=== PATIENT | male | born 1940 | race Caucasian/White ===

== ENCOUNTER 2018-07-16 06:21 | Day surgery (SDC) | payer MEDICARE, OTHER ==
[~2018-07-16] VITALS: Ht 182.9 cm; Wt 108.0 kg
[~2018-07-16 06:21] MED LIST: ASPI81EC PO; Androgel2.5 GM TOP; Aspirin EC81 MG; CHLOROPHYLL 201 EACH; Coq-10100 MG PO; ERGO400 PO; EXFORGE PO; Exforge 5-3201 EACH PO; FISH OIL 1,0001 EAC1 PO; HYOS.375ER PO; HYOSCYAMINE0.375 MG PO; LIRA0.6P SC; METF500C PO; Metamucil0.52 GM PO; NULLO PO; OMEP20ER PO; PROBIOTIC1 EAC1 PO; PROBIOTICS PO; PSYL5.85P PO; SERT50 PO; TAMS.4ER PO; TOCO1000 PO; VITAMIN E PO; Vitamin D-3 PO; Vitamin D400 UNI1 PO; [UNRECOGNIZED DRUG - OTHER] PO
== END 2018-07-16 08:46 | disposition home or self-care (01) ==
LOC: ORSCMMR 06:21 → ORD 07:30 → ORSCMMR 08:46
PROVIDERS: Surgery
PROC: 0JBG0ZZ Excision of Right Lower Arm Subcutaneous Tissue and Fascia, Open Approach (ICD-10-PCS; principal; 2018-07-16 07:30)
DX: D18.01 Hemangioma of skin and subcutaneous tissue (principal); E11.9 Type 2 diabetes mellitus without complications; G47.33 Obstructive sleep apnea (adult) (pediatric); I10 Essential (primary) hypertension; E78.5 Hyperlipidemia, unspecified; Z79.899 Other long term (current) drug therapy
CPT/HCPCS: 82947; 88305; J0690; J2001; J2250; J3010; J7120

== ENCOUNTER → 2020-06-28 | Outpatient (CLI) | payer MEDICARE, OTHER ==
[~2020-06-28] MED LIST changes: +AMLODIPINE-VAL1 EAC2 PO; +Co Q-10300 MG PO; +ERGO400; +Fish Oil 10001000 MG PO; +Glucophage1000 MG PO; +HYOSCYAMINE0.375 M1 PO; +Metamucil Plus1 EACH PO; +OMEPRAZOLE MAGN20 MG PO; +PROBIOTIC1 EAC1; +SAXENDA3 MG/0.5 M SC; +SERT100 PO; +TESTOSTERO30 MG/1.5 TD; +Vitamin E100 UNIT
[2020-06-28 11:00] LABS: Source, Urine Clean Catch
[2020-06-28 12:37] LABS: Appearance, Urine Clear (Clear); Bilirubin, Urine Neg (Neg); Blood, Urine Neg (Neg); Color, Urine Yellow (P-Yellow); Glucose Qualitative, Urine Neg (Neg); Ketones, Urine Neg (Neg); Leukocyte Esterase, Urine Neg (Neg); Nitrite, Urine Neg (Neg); Protein, Urine Neg (Neg); Urobilinogen, Urine 1+ (Normal)
== END | disposition home or self-care (01) ==
LOC: LAB SHORT 10:58 → OLS 10:58
PROVIDERS: Internal Medicine
DX: N39.44 Nocturnal enuresis (principal)
CPT/HCPCS: 81003

== ENCOUNTER 2021-08-12 19:36 | Inpatient (IN) | payer MEDICARE, OTHER ==
[~2021-08-12] VITALS: Ht 172.7 cm; Wt 105.2 kg
[2021-08-12 21:13] LABS: BASOPHILS ABSOLUTE AUTO 0.09 K/mm3 (0.00-0.23); BASOPHILS PERCENT AUTO 0 % (0-2); EOSINOPHILS PERCENT AUTO 0 % (0-6); Hematocrit 45.9 % (37.0-53.0); Hemoglobin 15.1 g/dL (13.5-17.5); IMMATURE GRAN ABSOLUTE AUTO 0.47 K/mm3 (0.00-0.10); IMMATURE GRAN PERCENT AUTO 1 % (0-1); LYMPHOCYTES ABSOLUTE AUTO 0.72 K/mm3 (0.84-5.20); LYMPHOCYTES PERCENT AUTO 2 % (21-46); MONOCYTES ABSOLUTE AUTO 3.17 K/mm3 (0.16-1.47); MONOCYTES PERCENT AUTO 10 % (4-13); Mean Corpuscular HGB 32.3 pg (26.0-34.0); Mean Corpuscular HGB Conc 32.9 g/dL (31.5-36.5); Mean Corpuscular Volume 98 fL (80-100); Mean Platelet Volume 10.8 fL (9.1-12.4); NEUTROPHILS ABSOLUTE AUTO 28.35 K/mm3 (1.96-9.15); NEUTROPHILS PERCENT AUTO 86 % (41-73); Platelet Count 210 K/mm3 (150-400); RDW Coefficient Variation 13.4 % (11.7-14.2); RDW Standard Deviation 48.3 fL (35.1-46.3); Red Blood Cell Count 4.67 M/mm3 (4.30-5.90)
[2021-08-12 21:41] LABS: Alanine Aminotransfer (ALT/SGP 23 U/L (12-78); Albumin, Blood 3.4 g/dL (3.4-5.0); Albumin/Globulin Ratio 0.8 (0.8-1.8); Alk Phos 99 U/L (50-136); Anion Gap 8 mmol/L (6-16); Aspartate Aminotrans (AST/SGOT 25 U/L (12-37); Blood Urea Nitrogen 26 mg/dL (8-24); Bun/Creatinine Ratio 28.3 (12.0-20.0); CO2, Blood 24 mmol/L (21-32); Calcium, Blood 9.7 mg/dL (8.5-10.1); Chloride, Blood 100 mmol/L (98-108); Creatinine, Blood 0.92 mg/dL (0.60-1.20); Globulin, Blood 4.1 g/dL (2.2-4.0); Glomerular Filtration Rate >60 (60-); Glucose, Blood 226 mg/dL (70-99); Potassium, Blood 4.5 mmol/L (3.5-5.5); Sodium, Blood 132 mmol/L (136-145); Total Protein, Blood 7.5 g/dL (6.4-8.2)
[2021-08-12 21:56] LABS: Source, Urine Clean Catch
[2021-08-12 22:13] LABS: Blood, Urine 3+ (Neg); Glucose Qualitative, Urine 2+ (Neg); Ketones, Urine 2+ (Neg); Leukocyte Esterase, Urine 3+ (Neg); Nitrite, Urine Neg (Neg); Protein, Urine 2+ (Neg); Specific Gravity, Urine 1.025 (1.003-1.022); Urobilinogen, Urine 2+ (Normal)
[2021-08-12 22:22] LABS: Appearance, Urine Cloudy (Clear); Bilirubin, Urine 1+ (Neg); Color, Urine Yellow (P-Yellow)
[2021-08-12 22:24] LABS: Bacteria Many /hpf; Mucus Light (0-Heavy); Squamous Epithelial Cells Few /hpf (Few); White Blood Cells, Urine TNTC /hpf (0-5)
[2021-08-12] MEDS ORDERED: VICTOZA 3-0.6 MG/0.2 SC (23:39)
[2021-08-12] MEDS ORDERED: DONEPEZIL HCL10 MG PO (23:40)
[2021-08-13 00:47] LABS: Influenza A, PCR NEGATIVE (NEGATIVE); Influenza B, PCR NEGATIVE (NEGATIVE); Resp Syncytial Virus, PCR NEGATIVE (NEGATIVE); SARS-Cov-2 (COVID-19) PCR, MMC NEGATIVE (NEGATIVE)
[2021-08-13 05:33] LABS: BASOPHILS ABSOLUTE AUTO 0.05 K/mm3 (0.00-0.23); BASOPHILS PERCENT AUTO 0 % (0-2); EOSINOPHILS PERCENT AUTO 0 % (0-6); Hemoglobin 12.9 g/dL (13.5-17.5); IMMATURE GRAN ABSOLUTE AUTO 0.31 K/mm3 (0.00-0.10); IMMATURE GRAN PERCENT AUTO 1 % (0-1); LYMPHOCYTES ABSOLUTE AUTO 1.08 K/mm3 (0.84-5.20); LYMPHOCYTES PERCENT AUTO 4 % (21-46); MONOCYTES ABSOLUTE AUTO 1.96 K/mm3 (0.16-1.47); MONOCYTES PERCENT AUTO 8 % (4-13); Mean Corpuscular HGB 32.5 pg (26.0-34.0); Mean Corpuscular HGB Conc 33.1 g/dL (31.5-36.5); Mean Corpuscular Volume 98 fL (80-100); NEUTROPHILS ABSOLUTE AUTO 21.77 K/mm3 (1.96-9.15); NEUTROPHILS PERCENT AUTO 87 % (41-73); RDW Coefficient Variation 13.2 % (11.7-14.2); Red Blood Cell Count 3.97 M/mm3 (4.30-5.90); White Blood Cell Count 25.17 K/mm3 (4.00-11.30)
[2021-08-13 05:44] LABS: Mean Platelet Volume 11.1 fL (9.1-12.4); Platelet Count 143 K/mm3 (150-400)
[2021-08-13 06:19] LABS: Alanine Aminotransfer (ALT/SGP 16 U/L (12-78); Albumin, Blood 2.5 g/dL (3.4-5.0); Albumin/Globulin Ratio 0.8 (0.8-1.8); Alk Phos 81 U/L (50-136); Anion Gap 4 mmol/L (6-16); Aspartate Aminotrans (AST/SGOT 22 U/L (12-37); Bilirubin, Total 0.7 mg/dL (0.1-1.0); Blood Urea Nitrogen 21 mg/dL (8-24); Bun/Creatinine Ratio 28.9 (12.0-20.0); CO2, Blood 26 mmol/L (21-32); Calcium, Blood 8.5 mg/dL (8.5-10.1); Chloride, Blood 105 mmol/L (98-108); Creatinine, Blood 0.73 mg/dL (0.60-1.20); Globulin, Blood 3.3 g/dL (2.2-4.0); Glomerular Filtration Rate >60 (60-); Glucose, Blood 170 mg/dL (70-99); Potassium, Blood 4.2 mmol/L (3.5-5.5); Sodium, Blood 135 mmol/L (136-145); Total Protein, Blood 5.8 g/dL (6.4-8.2)
[2021-08-13] MEDS ORDERED: Diflucan150 MG PO (10:09)
[2021-08-13] MEDS ORDERED: METF500 PO (17:57)
[2021-08-13] MEDS ORDERED: Vitamin D1000 UNI1 PO (17:59)
--- NOTE | 2021-08-13 19:04 | NUR ---
PT ADMITTED TO MEDICAL FLOOR FROM ED,PT HAVE OVER 250CC IN AFER VOID AND BLADER SCAN,SUAREZ INSERTED PER ORDER.PT IS DEMENTED.DAUGHTER AT BEDSIDE,PT USE CIPAP AT NIGHT PER DAUGHTER,PT IN BED CALL LIGHT IN REACH,GIVE REPORT TO ON COMING RN TO RESUME CARE AT THIS TIME.
[2021-08-13 19:09] LABS: Source, Urine Catheter
[2021-08-13 19:14] LABS: Appearance, Urine Hazy (Clear); Bilirubin, Urine Neg (Neg); Blood, Urine 2+ (Neg); Color, Urine Yellow (P-Yellow); Glucose Qualitative, Urine Neg (Neg); Ketones, Urine 1+ (Neg); Leukocyte Esterase, Urine 2+ (Neg); Nitrite, Urine Neg (Neg); Protein, Urine 1+ (Neg); Urobilinogen, Urine 1+ (Normal)
[2021-08-13 19:32] LABS: White Blood Cells, Urine 25-50 /hpf (0-5)
[2021-08-13 19:33] LABS: Bacteria Few /hpf; Squamous Epithelial Cells Few /hpf (Few)
--- NOTE | 2021-08-13 23:38 | NUR ---
AROUNND 1900 PT WAS DEB WITH HR OF 32 BPM FOR A FEW SECONDS AND HR CAME BACK UP TO THE 70'S. PT CHECKED ON, APPEARS TO BE NO CHANGES. ENTERTAINMENT MUSICIAN. SALVADOR Clemons MADE AWARE. PT IS ALERT AND TALKING TO DAUGHTER IN ROOM AT THIS TIME. WILL CONTINUE TO MONTIOR. 2300 PT SR WITH BBB IN THE 70'S PER OPERATIONS SUPPORT REPRESENTATIVE. CALL LIGHT WITHIN REACH, BED ALARM ON, WILL CONTINUE TO MONITOR.
--- NOTE | 2021-08-14 04:36 | NUR ---
MANAGER MATERIAL SUMMARY A/O X4 WITH FORGETFULNESS. SLEPT WELL TONIGHT, DENIES PAIN. ROOM AIR DURING THE DAY, CPAP AT NIGHT. SATTING IN THE 90'S. SUAREZ PATNENT AND DRAINING RED URINE. PER HALVER MACHINE OPERATOR, PT RUNNING SINUS IN THE 70'S WITH BBB. VITALS STABLE. CALL LIGHT WITHIN REACH, BED ALARM ON, WILL CONTINUE TO MONITOR.
[2021-08-14 05:06] LABS: BASOPHILS ABSOLUTE AUTO 0.02 K/mm3 (0.00-0.23); BASOPHILS PERCENT AUTO 0 % (0-2); EOSINOPHILS ABSOLUTE AUTO 0.03 K/mm3 (0.00-0.68); EOSINOPHILS PERCENT AUTO 0 % (0-6); Hematocrit 37.1 % (37.0-53.0); Hemoglobin 12.4 g/dL (13.5-17.5); IMMATURE GRAN ABSOLUTE AUTO 0.05 K/mm3 (0.00-0.10); IMMATURE GRAN PERCENT AUTO 0 % (0-1); LYMPHOCYTES ABSOLUTE AUTO 0.61 K/mm3 (0.84-5.20); LYMPHOCYTES PERCENT AUTO 4 % (21-46); MONOCYTES ABSOLUTE AUTO 1.03 K/mm3 (0.16-1.47); MONOCYTES PERCENT AUTO 7 % (4-13); Mean Corpuscular HGB 32.2 pg (26.0-34.0); Mean Corpuscular HGB Conc 33.4 g/dL (31.5-36.5); Mean Corpuscular Volume 96 fL (80-100); Mean Platelet Volume 11.4 fL (9.1-12.4); NEUTROPHILS ABSOLUTE AUTO 12.51 K/mm3 (1.96-9.15); NEUTROPHILS PERCENT AUTO 88 % (41-73); Platelet Count 165 K/mm3 (150-400); RDW Coefficient Variation 13.2 % (11.7-14.2); RDW Standard Deviation 46.5 fL (35.1-46.3); Red Blood Cell Count 3.85 M/mm3 (4.30-5.90); White Blood Cell Count 14.25 K/mm3 (4.00-11.30)
[2021-08-14 05:48] LABS: Alanine Aminotransfer (ALT/SGP 16 U/L (12-78); Albumin, Blood 2.3 g/dL (3.4-5.0); Albumin/Globulin Ratio 0.7 (0.8-1.8); Alk Phos 78 U/L (50-136); Anion Gap 6 mmol/L (6-16); Aspartate Aminotrans (AST/SGOT 29 U/L (12-37); Bilirubin, Total 0.6 mg/dL (0.1-1.0); Blood Urea Nitrogen 14 mg/dL (8-24); Bun/Creatinine Ratio 22.2 (12.0-20.0); CO2, Blood 25 mmol/L (21-32); Calcium, Blood 8.6 mg/dL (8.5-10.1); Chloride, Blood 106 mmol/L (98-108); Creatinine, Blood 0.63 mg/dL (0.60-1.20); Globulin, Blood 3.3 g/dL (2.2-4.0); Glomerular Filtration Rate >60 (60-); Glucose, Blood 119 mg/dL (70-99); Potassium, Blood 3.8 mmol/L (3.5-5.5); Sodium, Blood 137 mmol/L (136-145); Total Protein, Blood 5.6 g/dL (6.4-8.2)
--- NOTE | 2021-08-14 18:34 | NUR ---
PT ALERT AND ORIENTED X 2,WITH DEMENTIA AND FORGETFULNESS,PT ON ROOM AIR SATS IN HIGH 90S,PT ON TELE RUNNING SINUS WITH PACS AT 64 PER RURAL MAIL CONTRACTOR.PT JENNI SUAREZ,EMELYANGE TO GRAVITY,PT UP TO CHAIR FOR EVERY MEALS,PT WEAR CPAP AT NIGHT,PT HAVE NS AT 50ML/HR,PT DAUGHTER AT BEDSIDE,BED IN LOW POSITION,BED ALARM ON ,CALL LIGHT IN REACH WILL CONTINUE TO MONITOR.
--- NOTE | 2021-08-15 02:21 | NUR ---
GROOVING MACHINE OPERATOR SUMMARY PATIENT HAD A FAIR SHIFT. VITALS WERE STABLE. NO FRESH COMPLAINT. HAD A CRITICAL LAB RESULT, INFORMED THE ONCALL PHYSICIAN. WILL CONTINUE TO MONITOR HIM.
[2021-08-15 04:37] LABS: BASOPHILS ABSOLUTE AUTO 0.02 K/mm3 (0.00-0.23); BASOPHILS PERCENT AUTO 0 % (0-2); EOSINOPHILS ABSOLUTE AUTO 0.08 K/mm3 (0.00-0.68); EOSINOPHILS PERCENT AUTO 1 % (0-6); Hematocrit 39.3 % (37.0-53.0); IMMATURE GRAN ABSOLUTE AUTO 0.03 K/mm3 (0.00-0.10); IMMATURE GRAN PERCENT AUTO 0 % (0-1); LYMPHOCYTES PERCENT AUTO 15 % (21-46); MONOCYTES ABSOLUTE AUTO 0.83 K/mm3 (0.16-1.47); MONOCYTES PERCENT AUTO 12 % (4-13); Mean Corpuscular HGB 31.3 pg (26.0-34.0); Mean Corpuscular HGB Conc 33.1 g/dL (31.5-36.5); Mean Corpuscular Volume 95 fL (80-100); Mean Platelet Volume 10.7 fL (9.1-12.4); NEUTROPHILS ABSOLUTE AUTO 5.11 K/mm3 (1.96-9.15); NEUTROPHILS PERCENT AUTO 71 % (41-73); Platelet Count 183 K/mm3 (150-400); RDW Coefficient Variation 13.2 % (11.7-14.2); RDW Standard Deviation 46.1 fL (35.1-46.3); Red Blood Cell Count 4.15 M/mm3 (4.30-5.90); White Blood Cell Count 7.17 K/mm3 (4.00-11.30)
[2021-08-15 04:55] LABS: Anion Gap 5 mmol/L (6-16); Blood Urea Nitrogen 14 mg/dL (8-24); Bun/Creatinine Ratio 23.9 (12.0-20.0); CO2, Blood 26 mmol/L (21-32); Calcium, Blood 8.8 mg/dL (8.5-10.1); Chloride, Blood 110 mmol/L (98-108); Creatinine, Blood 0.59 mg/dL (0.60-1.20); Glomerular Filtration Rate >60 (60-); Glucose, Blood 153 mg/dL (70-99); Magnesium, Blood 1.7 mg/dL (1.6-2.4); Potassium, Blood 3.8 mmol/L (3.5-5.5); Sodium, Blood 141 mmol/L (136-145)
--- NOTE | 2021-08-15 18:25 | NUR ---
PT ALERT ORIENTED WITH DEMENTIA AND FORGETFULNESS,PT SUAREZ INTACT DRAINAGE TO GRAVITY,PT HAD COUPLE EPISODES OF SINUS DEB IN THE 40'S,PER RETAIL SALES ADVISOR, NOTIFIED,PT CURRENTLY SINUS [place]RIA AT 57 WITH BUNDLE BRANCH BLOCK PER TELE.PT DAUGHTER AT BEDSIDE,PT UP TO CHAIR FOR ALL MEALS,PT NS AT 50ML/HR.PT IN BED,BED ALARM ON,BED IN LOW POSITION,CALL LIGHT IN REACH WILL CONTINUE TO MONITOR.
--- NOTE | 2021-08-15 23:37 | NUR ---
PT RESTING IN BED. DENIES ANY DISCOMFORT. SB ON TELE 42-38 AT TIMES NON-SUSTAINED. PT ASYMPTOMATIC. DR. GREENE MADE AWARE. WILL CONTINU TO MONITOR.
--- NOTE | 2021-08-16 04:10 | NUR ---
PT RESTING IN BED AAO. RESP UNLABORED. TELE SINUS DEB IN 50'S. DENIES CHEST PAIN. DEB EPISODES OF 48 & 38. NON-SUSTAINED. DR. GREENE AWARE. PT USES HIS OWN BIPAP AT HS. SAT 94%. VSS. CALL LIGHT WITHIN REACH. MEDS PER DEC.
[2021-08-16 04:57] LABS: BASOPHILS ABSOLUTE AUTO 0.02 K/mm3 (0.00-0.23); BASOPHILS PERCENT AUTO 0 % (0-2); EOSINOPHILS ABSOLUTE AUTO 0.12 K/mm3 (0.00-0.68); EOSINOPHILS PERCENT AUTO 2 % (0-6); Hematocrit 39.5 % (37.0-53.0); Hemoglobin 13.3 g/dL (13.5-17.5); IMMATURE GRAN ABSOLUTE AUTO 0.03 K/mm3 (0.00-0.10); IMMATURE GRAN PERCENT AUTO 1 % (0-1); LYMPHOCYTES ABSOLUTE AUTO 0.99 K/mm3 (0.84-5.20); LYMPHOCYTES PERCENT AUTO 17 % (21-46); MONOCYTES ABSOLUTE AUTO 0.78 K/mm3 (0.16-1.47); MONOCYTES PERCENT AUTO 14 % (4-13); Mean Corpuscular HGB 32.1 pg (26.0-34.0); Mean Corpuscular HGB Conc 33.7 g/dL (31.5-36.5); Mean Corpuscular Volume 95 fL (80-100); NEUTROPHILS ABSOLUTE AUTO 3.74 K/mm3 (1.96-9.15); NEUTROPHILS PERCENT AUTO 66 % (41-73); Platelet Count 183 K/mm3 (150-400); RDW Coefficient Variation 13.2 % (11.7-14.2); RDW Standard Deviation 46.5 fL (35.1-46.3); Red Blood Cell Count 4.14 M/mm3 (4.30-5.90); White Blood Cell Count 5.68 K/mm3 (4.00-11.30)
[2021-08-16 05:15] LABS: Anion Gap 5 mmol/L (6-16); Blood Urea Nitrogen 10 mg/dL (8-24); Bun/Creatinine Ratio 16.1 (12.0-20.0); CO2, Blood 26 mmol/L (21-32); Calcium, Blood 8.6 mg/dL (8.5-10.1); Chloride, Blood 110 mmol/L (98-108); Creatinine, Blood 0.62 mg/dL (0.60-1.20); Glomerular Filtration Rate >60 (60-); Glucose, Blood 173 mg/dL (70-99); Magnesium, Blood 1.6 mg/dL (1.6-2.4); Potassium, Blood 3.7 mmol/L (3.5-5.5); Sodium, Blood 141 mmol/L (136-145)
--- NOTE | 2021-08-16 14:54 | NUR ---
PATIENT IS ORIENTED TO PERSON, PLACE AND TIME WITH FORGETFULNESS. DEPENDING ON WHOSE IDEA IT IS, THE PATIENT IS A ONE TO TWO PERSON MOD/MAX ASSIST WITH TRANSFERS. IF THE PATIENT IS WANTING TO TRANSFER TO/FROM BED HE DOES VERY WELL AND REQUIRES LESS STAFF ASSISTANCE; IF THE STAFF IS ATTEMPTING TO GET THE PATIENT UP INTO THE BSC FOR A MEAL THE PATIENT NEEDS A BIT MORE DIRECTION AND ASSISTANCE. I BELIEVE THIS TO BE MORE R/T COGNITION THAN NOT WANTING TO COOPERATE. PATIENT CONTINUES TO RECIEVE IV ABX WITHOUT S/SX ADVERSE REACTIONS NOTED OR REPORTED. VITALS STABLE. NO ADVERSE OCCURANCES ON TELE THIS SHIFT. PATIENT RESTING IN ROOM WITH DAUGHTER AT BEDSIDE AT THIS TIME. CALL LIGHT IN REACH.
--- NOTE | 2021-08-16 17:54 | NUR ---
BLADDER TRAINING INITIATED AT 1740; SUAREZ CLAMPED.
--- NOTE | 2021-08-17 06:09 | NUR ---
SHIFT SUMMARY PATIENT ALERT AND ORIENTED X3. HAD NO COMPLAINTS OF PAIN OR SHORTNESS OF BREATH. SLEPT WELL OVERNIGHT. BED IN LOWEST POSITION WITH WHEELS LOCKED AND ALARM ON. CALL LIGHT WITHIN REACH. REPORT GIVEN TO ONCOMING RN.
[2021-08-17 06:35] LABS: BASOPHILS ABSOLUTE AUTO 0.04 K/mm3 (0.00-0.23); BASOPHILS PERCENT AUTO 1 % (0-2); EOSINOPHILS ABSOLUTE AUTO 0.13 K/mm3 (0.00-0.68); EOSINOPHILS PERCENT AUTO 2 % (0-6); Hematocrit 40.5 % (37.0-53.0); Hemoglobin 13.6 g/dL (13.5-17.5); IMMATURE GRAN ABSOLUTE AUTO 0.05 K/mm3 (0.00-0.10); IMMATURE GRAN PERCENT AUTO 1 % (0-1); LYMPHOCYTES PERCENT AUTO 17 % (21-46); MONOCYTES PERCENT AUTO 13 % (4-13); Mean Corpuscular HGB Conc 33.6 g/dL (31.5-36.5); Mean Corpuscular Volume 98 fL (80-100); Mean Platelet Volume 11.2 fL (9.1-12.4); NEUTROPHILS PERCENT AUTO 67 % (41-73); Platelet Count 173 K/mm3 (150-400); RDW Coefficient Variation 13.2 % (11.7-14.2); RDW Standard Deviation 46.7 fL (35.1-46.3); Red Blood Cell Count 4.12 M/mm3 (4.30-5.90); White Blood Cell Count 6.92 K/mm3 (4.00-11.30)
[2021-08-17 07:07] LABS: Anion Gap 5 mmol/L (6-16); Blood Urea Nitrogen 7 mg/dL (8-24); Bun/Creatinine Ratio 11.9 (12.0-20.0); CO2, Blood 26 mmol/L (21-32); Calcium, Blood 8.5 mg/dL (8.5-10.1); Chloride, Blood 110 mmol/L (98-108); Creatinine, Blood 0.59 mg/dL (0.60-1.20); Glomerular Filtration Rate >60 (60-); Glucose, Blood 163 mg/dL (70-99); Magnesium, Blood 1.9 mg/dL (1.6-2.4); Sodium, Blood 141 mmol/L (136-145)
--- NOTE | 2021-08-17 17:30 | NUR ---
SHIFT SUMMARY 81 YEAR M ADMITTED WITH FOR SEPSIS. PT HAS HX OF DEMENTIA AND DX OF UTI. PT IS A&O X2-3 BUT DOES SEEM CONFUSED AND FORGETFULL AT TIMES. PT HAS SUAREZ CATH IN PLACE AND BLADDER RETRIANING HAS BEEN INITITIATED. PS FAMILY REPORTS THAT HE HAS BEEN INC AT HOME AND USUALLY WEARS ATTENDS. PT HAS BEEN UP TO CHAIR FOR ALL MEALS AND IS ABLE TO STAND WITH SUPERVISION AND USE FWW TO TRANSER IND WITH INSTRUCTIONS. BP HAS BEEN SINUS DEB ON TELE WITH RATE LOW 35. MD INFORMED AND EKG COMPLETED SHOWING SINUS DEB WITH 1ST DEGREE BLOCK. NO NEW ORDERS AT THIS TIME. D/C PLANNING IS PENDING FOR PT TO GO TO AN DETENTION OR RETURN HOMEWHERE HE LIVES ALONE BUT DOES HAVE A DAUGHTER NEAR BY WHO IS SUPPORTIVE WITH CARE. NO OTHER CHANGES THIS SHIFT.
[2021-08-18 04:49] LABS: BASOPHILS ABSOLUTE AUTO 0.03 K/mm3 (0.00-0.23); BASOPHILS PERCENT AUTO 0 % (0-2); EOSINOPHILS ABSOLUTE AUTO 0.16 K/mm3 (0.00-0.68); EOSINOPHILS PERCENT AUTO 2 % (0-6); Hematocrit 40.4 % (37.0-53.0); Hemoglobin 13.4 g/dL (13.5-17.5); IMMATURE GRAN ABSOLUTE AUTO 0.07 K/mm3 (0.00-0.10); IMMATURE GRAN PERCENT AUTO 1 % (0-1); LYMPHOCYTES PERCENT AUTO 16 % (21-46); MONOCYTES PERCENT AUTO 10 % (4-13); Mean Corpuscular HGB 31.9 pg (26.0-34.0); Mean Corpuscular HGB Conc 33.2 g/dL (31.5-36.5); Mean Corpuscular Volume 96 fL (80-100); Mean Platelet Volume 10.7 fL (9.1-12.4); NEUTROPHILS PERCENT AUTO 71 % (41-73); Platelet Count 212 K/mm3 (150-400); RDW Coefficient Variation 13.2 % (11.7-14.2); White Blood Cell Count 7.66 K/mm3 (4.00-11.30)
[2021-08-18 04:59] LABS: Anion Gap 4 mmol/L (6-16); Blood Urea Nitrogen 5 mg/dL (8-24); Bun/Creatinine Ratio 7.7 (12.0-20.0); CO2, Blood 29 mmol/L (21-32); Calcium, Blood 8.4 mg/dL (8.5-10.1); Chloride, Blood 109 mmol/L (98-108); Creatinine, Blood 0.65 mg/dL (0.60-1.20); Glomerular Filtration Rate >60 (60-); Glucose, Blood 153 mg/dL (70-99); Potassium, Blood 3.8 mmol/L (3.5-5.5); Sodium, Blood 142 mmol/L (136-145)
--- NOTE | 2021-08-18 05:24 | NUR ---
SHIFT SUMMARY PATIENT ALERT AND ORIENTED X3. PLEASANTLY CONFUSED. HAD NO COMPLAINTS OF PAIN OR SHORTNESS OF BREATH. NO ACUTE ISSUES NOTED OVERNIGHT. CALL LIGHT WITHIN REACH. REPORT GIVEN TO ONCOMING RN.
--- NOTE | 2021-08-18 17:18 | NUR ---
Update 08/18/21: I have been assisting family throughout the week with placement. Patient's condition has declined to the point that assisted living facility has been recommended. Pt. would like to return home, but understands that he need more help. Family is in the process of working with Coreen at [facility] for possible place. Pt. is medicaly stable and ready for discharge. Discussed this with family. They would like to take pt. home on while finishing the assisted living facility financial process. I will be delivering caregiver packet to the room in case needed. Also scheduling pt. for hospital F/U. Pt. will discharge in the am 08/19/21. Family providing transportation.
--- NOTE | 2021-08-18 17:46 | NUR ---
SHIFT SUMMARY 81 YEAR M ADMITTED WITH FOR SEPSIS. PT HAS HX OF DEMENTIA AND DX OF UTI. PT IS A&O X2-3 BUT DOES SEEM CONFUSED AND FORGETFULL AT TIMES. PT HAS SUAREZ CATH IN PLACE . PT HAS BEEN UP TO CHAIR FOR ALL MEALS AND IS ABLE TO STAND WITH SUPERVISION AND USE FWW TO TRANSER IND WITH INSTRUCTIONS. BP HAS BEEN SINUS DEB ON TELE WITH RATE LOW 35. D/C PLANNING IS FOR PT TO GO HOME TOMORROW MORNING AND PT'S DAUGHTER AND SON IN LAW WILL BE STAYING WITH HIM FOR 1 WEEK AND TRANSITION HIM INTO AN CARE HOME. NO OTHER CHANGES THIS SHIFT.
--- NOTE | 2021-08-19 04:20 | NUR ---
SUMMARY NO NEW ISSUES NOTED. PT HAS BEEN RESTING FOR MOST OF SHIFT. PT REFUSED TO WEAR CPAP THIS SHIFT. PT STATES HE IS EAGER TO GO HOME. PT CURRENTLY SLEEPING AND BREATHING EASY. CALL LIGHT IN REACH AND BED ALARM ON.
--- NOTE | 2021-08-19 16:12 | NUR ---
PT DISCHARGED THE PTS FAMILY VERBALIZED UNDERSTANDING OF THE DC INSTRUCTIONS. DR. CARLSON SPOKE WITH THE FAMILY PRIOR TO DC THEY REQUESTED. HOME HEALTH WAS ORDERED AT DISCHARGE PER THE FAMILY REQUEST. FAMILY VERBALIZED UNDERSTANDING OF THE DC MEDICATIONS. PT AND HIS FAMILY WAS REMINDED TO CALL [facility] ON SATURDAY TO SCHEDULE A FOLLOW UP APPOINTMENT. THE PT WAS GIVEN A SHOWER PRIOR TO DC REQUESTED. PT WAS TRANSFERED VIA WHEELCHAIR ACCOMPANIED BY THE ATHLETICS TEACHER AND HIS FAMILY
== END 2021-08-19 15:34 | disposition home health service (06) | DRG 871 ==
LOC: ER 19:36 → MEDS 08-13 00:33 → ERHOLD 08-13 00:33 → MEDS 08-13 17:32
PROVIDERS: Family Medicine; Internal Medicine; Physician Assistant; Student in an Organized Health Care Education/Training Program; ADMIT Internal Medicine
DX: A41.51 Sepsis due to Escherichia coli [E. coli] (principal); G93.41 Metabolic encephalopathy; N39.0 Urinary tract infection, site not specified; Z20.822 Contact with and (suspected) exposure to COVID-19; Z66 Do not resuscitate; E86.0 Dehydration; R00.0 Tachycardia, unspecified; E55.9 Vitamin D deficiency, unspecified; F03.90 Unspecified dementia, unspecified severity, without behavioral disturbance, psychotic disturbance, mood disturbance, and anxiety; Z28.21 Immunization not carried out because of patient refusal; R06.6 Hiccough; K21.9 Gastro-esophageal reflux disease without esophagitis; E11.9 Type 2 diabetes mellitus without complications; Z88.0 Allergy status to penicillin; Z79.84 Long term (current) use of oral hypoglycemic drugs; Z79.899 Other long term (current) drug therapy; Z88.3 Allergy status to other anti-infective agents; Z85.528 Personal history of other malignant neoplasm of kidney; Z90.89 Acquired absence of other organs; Z98.890 Other specified postprocedural states; Z90.5 Acquired absence of kidney
CPT/HCPCS: 0241U; 36415; 51798; 70551; 71045; 74177; 80048; 80053; 81001; 82947; 83036; 83605; 83735; 85025; 87040; 87077; 87086; 87186; 92523; 92610; 93005; 93010; 94760; 94761; 94762; 96365; 96372; 97110; 97116; 97116-CQ; 97162; 97165; 97530; 97535; 99285-25; A9270; J0696; J1650; J3370; J3475; J7030; J7050; Q9967